=== PATIENT | male | born 1950 | race Caucasian/White ===

== ENCOUNTER 2019-07-31 07:55 | Inpatient (IN) ==
[2019-07-31 08:17] LABS: URINE SOURCE CLEAN CATCH
[2019-07-31] MEDS ORDERED: ZOFRAN IV ONE (08:25)
[2019-07-31] MEDS ORDERED: NS 1,000 ML IV ONE ×2 (08:25→11:34)
[2019-07-31 08:26] LABS: BILIRUBIN URINE SMALL (NEGATIVE); BLOOD URINE NEGATIVE (NEGATIVE); CLARITY CLEAR (CLEAR); COLOR YELLOW; GLUCOSE URINE NEGATIVE (NEGATIVE); KETONE URINE 15 mg/dL (NEGATIVE); LEUKOCYTES URINE NEGATIVE (NEGATIVE); NITRITE URINE NEGATIVE (NEGATIVE); PROTEIN URINE 100 mg/dL (NEGATIVE); SP GRAVITY URINE >= 1.030; UROBILINOGEN URINE 0.2 EU/dL (0.2-1.0)
[2019-07-31 08:27] LABS: URINE BACTERIA 1+ /HFP; URINE EPITHELIAL CELLS <10 /HPF (<10); URINE RBC <10 /HPF (<10)
[2019-07-31 08:28] LABS: URINE WBC <10 /HPF (<10)
--- NOTE | 2019-07-31 08:30 | PROVIDER DOCUMENTATION ---
HPI-Abdominal Pain/GI Problem - General Chief Complaint: N/V/D Stated Complaint: ABD PAIN,VOMITING,DIARRHEA Time Seen by Provider: 07/31/19 08:18 Source: patient, family, old records Allergies/Adverse Reactions: Patient Allergies Allergy/AdvReac Type Severity Reaction Status Date / Time meloxicam [From Mobic] Allergy ANAPHYLAXIS Verified 07/31/19 08:20 Home Medications: Home Medication List Medication Instructions Recorded Confirmed Last Taken Type Diazepam 5 mg PO DAILY 06/22/19 07/31/19 07/30/19 History Hydrochlorothiazide 25 mg PO DAILY 06/22/19 07/31/19 07/30/19 History Losartan Potassium 100 mg PO DAILY 06/22/19 07/31/19 07/30/19 History Omeprazole 40 mg PO DAILY 06/22/19 07/31/19 07/30/19 History Apixaban [Eliquis] 5 mg PO BID 07/31/19 07/31/19 07/30/19 History - History of Present Illness-ABD Nature of Presenting Problems: pt w/ hx of CAD/CABG on Eliquis for 3 mos per Card at [facility] for "superficial" VT of leg (DVT ruled out per pt/family), presents w/ cc: recurrent emesis/diarrhea (both non-bloody) since Friday. no signif abd pain. no clear fever, ? chills. no hx bowel disease. Review of Systems - Adult - REVIEW OF SYSTEMS - ADULT Constitutional: reports: no symptoms reported Eyes: reports: no symptoms reported Ears, Nose, Mouth & Throat: reports: no symptoms reported Cardiovascular: reports: no symptoms reported Respiratory: reports: no symptoms reported Gastrointestinal: reports: see HPI, diarrhea, vomiting. denies: hematemesis, rectal bleeding Genitourinary: reports: no symptoms reported Musculoskeletal: reports: no symptoms reported Integumentary: reports: no symptoms reported Neurological: reports: no symptoms reported Psychiatric: reports: no symptoms reported Endocrine: reports: no symptoms reported Hematologic/Lymphatic: reports: no symptoms reported Allergic/Immunologic: reports: no symptoms reported All Other Systems: Reviewed and Negative Past History - Adult - PAST MEDICAL HISTORY-ADULT Review of Records: reports: Old Records Reviewed Major Childhood Illnesses: reports: denies history Cardiovascular: reports: HTN, hyperlipidemia Respiratory: reports: denies history Gastrointestinal: reports: denies history Obstetrical/Gynecological: reports: denies history Genitourinary: reports: denies history Musculoskeletal: reports: denies history Neurological: reports: denies history Endocrine/Immune: reports: denies history Other Conditions: reports: denies history - PRIOR SURGERIES/PROCEDURES Surgical/Procedure History: reports: orthopedic (extremity) - IMMUNIZATION STATUS Childhood Immunizations: See Nurse Assessment Flu Vaccine: See Nurse Assessment - FAMILY HISTORY Family History: reviewed, not pertinent Physical Exam-General - PHYSICAL EXAM-ADULT Initial Vital Signs Reviewed: Yes - CONSTITUTIONAL General Appearance: appears well, alert, no apparent distress - EYES Eyes: PERRL/EOMI, pink conjunctivae - HEAD, EARS, NOSE, MOUTH & THROAT HENMT: normocephalic/atraumatic. negative: moist mucous membranes - NECK Neck: full range of motion, supple, normal inspection - RESPIRATORY Respiratory: normal breath sounds - CARDIOVASCULAR Cardiovascular: normal peripheral pulses, regular rate, rhythm - GASTROINTESTINAL (ABDOMEN) Abdominal Exam: normal bowel sounds, non tender, soft, no pulsatile mass. negat kevin: guarding, rigid, rebound, tenderness - LYMPHATIC Lymphatic: no adenopathy - MUSCULOSKELETAL Back Exam: normal inspection, no CVA tenderness Extremity: normal range of motion Peripheral Pulses: radial (R): 2+, radial (L): 2+ - SKIN Integumentary: normal color, normal turgor, warm/dry. negative: cyanosis, jaundice, rash - NEUROLOGIC Neurologic: certified lactation educator II-XII nml as tested ((hard of hearing)), grossly normal, no motor/sensory deficits - PSYCHIATRIC Psych/Mental Status: normal mood/affect, normal thought content Progress - PLAN OF CARE/RESULTS Progress/Plan/Lab Results: Vital Signs - 8 hr 07/31/19 07:59 Temperature 97.5 F L Pulse Rate 100 H Respiratory Rate 20 Blood Pressure 126/73 O2 Sat by Pulse Oximetry 97 Laboratory Results - last 24 hr 07/31/19 08:03 Urine Source CLEAN CATCH Orders Category Date Time Status Saline Loc DIRECTED Care 07/31/19 08:24 Ordered NPO Diet 07/31/19 08:24 Ordered AMYLASE [CHEM] Stat Lab 07/31/19 08:24 Uncollected CBC WITH ELECTRONIC DIFF [HEME] Stat Lab 07/31/19 08:24 Uncollected COMPREHENSIVE METABOLIC PANEL [CHEM] Stat Lab 07/31/19 08:24 Uncollected Flu Swab [INFLUENZA SCREEN A/B] Stat Lab 07/31/19 08:09 Ordered LIPASE [CHEM] Stat Lab 07/31/19 08:24 Uncollected STOOL CULTURE [RM] Stat Lab 07/31/19 08:25 Uncollected URINALYSIS W/POSS RFLX CULT [URINALYSIS] Stat Lab 07/31/19 08:24 Uncollected 0.9% Sodium Chloride Inj [Ns] 1,000 ml Med 07/31/19 08:25 Ordered IV 500 mls/hr Ondansetron [Zofran] Med 07/31/19 08:25 Once 4 mg IV NOW ONE Result Diagrams: 07/31/19 09:45 07/31/19 09:45 - REASSESSMENT Reassessment #2 Time Reassessed: 12:30 Status: improving (patient reports improvement w/ Rx, however wbc elev as is lactate. he continues to have diarrhea in ED, however abd becoming ? more distended: will scan) Reassessment #3 Time Reassessed: 13:30 Status: unchanged (diarrhea continues; however scan raises possibility of SBO; pt empirically was given Levaquin for sepsis coverage earlier. will order NG, consult for admission.) - CONSULTS/PCP/HOSPITALIST Notification #1 *Consult/PCP/Hospitalist*: Mayra Time Discussed: 13:40 Consult Disposition: Will see in ED Departure - Departure Date of Disposition Decision: 07/31/19 Time of Disposition Decision: 13:45 DIAGNOSIS: Ileus, Partial small bowel obstruction, Acute renal failure due to tubular necrosis Disposition: ADMITTED INPATIENT 09 Certified Medical Emergency: Emergent Condition: Serious - Critical Care Note This patient required my direct & personal management of CC.: Yes Total Time (mins): 40 Critical Care Statement: This patient required my direct personal management to treat or rule out processes, the absence of which, could potentiallly result in sudden, clinically significant life or limb threatening deterioration. Attestation - Physician/ DC Attestation The physician spent face to face time with patient:: Yes Advanced Practice Provider documentation review:: Supervising physician onsite and consulted in the evaluation and care of this patient. The physician did have a face to face encounter with the patient.
[2019-07-31 10:18] LABS: BASO# 0.02 X1000 (0.0-0.2); BASO% 0.1 % (0.0-0.8); EOS# 0.03 X1000 (0.0-0.7); EOS% 0.2 % (0.0-10.0); HEMATOCRIT 49.7 % (42.0-52.0); HEMOGLOBIN 16.7 g/dL (14.0-18.0); IMM GRAN# 0.04 X1000 (0.0-0.04); IMM GRAN% 0.3 % (0.0-0.5); LYMPH# 1.26 X1000 (1.2-3.4); LYMPH% 8.8 % (20.5-51.1); MCH 28.6 PG (27-31); MCHC 33.6 g/dL (33-37); MCV 85.1 FL (81-99); MONO# 1.37 X1000 (0.11-0.59); MONO% 9.6 % (1.7-9.3); MPV 12.3 FL (7.4-10.4); PLT 318 X1000 (130-400); RBC 5.84 XMIL (4.7-6.1); RDW 15.2 % (11.5-14.5); WBC 14.32 X1000 (4.8-10.8)
[2019-07-31 10:49] LABS: ALB/GLOB RATIO 1.3; ALBUMIN 4.7 g/dL (3.5-5.0); CALCIUM 10.1 mg/dL (8.8-10.2); CREATININE 2.8 mg/dL (0.7-1.2); POTASSIUM 3.8 mmol/L (3.5-5.1); TOTAL BILIRUBIN 0.56 mg/dL (0.20-1.00); TOTAL PROTEIN 8.2 g/dL (6.3-8.3)
[2019-07-31] MEDS ORDERED: LEVAQUIN 500 MG/D5W 500 MG/100 ML IVPB IV ONE (11:35)
[2019-07-31 12:08] LABS: INR 1.17; PROTIME 15.1 Seconds (11.0-16.0)
[2019-07-31 12:09] LABS: PTT 30.9 Seconds (22.3-41.8)
--- NOTE | 2019-07-31 12:26 | Diag Imaging Result Doc PS360 ---
EXAM: CT ABDOMEN/PELVIS W/O CONTRAST INDICATION: abd pain, sepsis+, leukocytosis, renal failure TECHNIQUE: This exam was performed using automated exposure control, adjustment of mA or kV according to patient size, and/or use of iterative reconstruction technique. COMPARISON: 05/17/2015 FINDINGS: There has been a prior cholecystectomy. The liver, spleen, and pancreas are grossly unremarkable. There is an approximately stable 1.6 cm right adrenal nodule most compatible with an adenoma. There is a stable nonobstructing right renal stone. There is no hydronephrosis. The urinary bladder is completely nondistended. The prostate is enlarged. This is stable. The appendix is normal. There is mild sigmoid colonic diverticulosis with no evidence of diverticulitis. There are multiple distended loops of small bowel with several air-fluid levels. Small bowel obstruction cannot be excluded. The distal small bowel is decompressed. If so, there is a possible transition point in the left lower quadrant that can be seen on image 141 of series 3. The remainder of the GI tract is grossly unremarkable. There is no evidence of acute osseous abnormality. There is a 4.1 cm aneurysm at the distal aorta just proximal to the aortoiliac bifurcation. It measured 3.3 cm previously at the same level. There is a small ventral abdominal wall hernia containing only mesenteric fat. There is evidence of prior hernia repair. IMPRESSION: 1.Multiple loops of small bowel with at least moderate distention. This is suspicious for small bowel obstruction. 2.Distal abdominal aortic aneurysm as described. 3.Other incidental/nonacute findings detailed above. Electronically signed by Rupesh Ty 07/31/2019 12:23 PM
--- NOTE | 2019-07-31 12:34 | Diag Imaging Result Doc PS360 ---
EXAM: CHEST-1 VIEW INDICATION: sepsis protocol TECHNIQUE: One view COMPARISON: 01/14/2019 FINDINGS: Inspiration is suboptimal. The lungs are grossly clear. There is no discrete pleural fluid collection or pneumothorax. There is evidence of an interval CABG. The cardiomediastinal silhouette and central vasculature are grossly unremarkable, otherwise. IMPRESSION: No evidence of acute pathology by plain radiograph. Electronically signed by Rupesh Ty 07/31/2019 12:31 PM
--- NOTE | 2019-07-31 14:51 | Diag Imaging Result Doc PS360 ---
EXAM: CHEST/ABD TUBE PLACEMENT INDICATION: NG tube placement TECHNIQUE: One view COMPARISON: 07/31/2019 FINDINGS: The newly placed NG tube tip projects over the distal esophagus above the diaphragm. The lungs are overexposed due to focus on the NG tube but the chest appears to be stable. IMPRESSION: Newly placed NG tube likely in the distal esophagus as described. Electronically signed by Rupesh Ty 07/31/2019 2:49 PM
--- NOTE | 2019-07-31 15:40 | Diag Imaging Result Doc PS360 ---
EXAM: CHEST/ABD TUBE PLACEMENT INDICATION: Small bowel obstruction TECHNIQUE: One view COMPARISON: 07/31/2019 FINDINGS: There has been interval advancement of the NG tube. The tip now projects below the diaphragm and is assumed to be in the lumen of the stomach in the expected position. Limited views of the lung bases are grossly stable. IMPRESSION: Interval advancement of the NG tube, which now appears to be in the lumen of the stomach. Electronically signed by Rupesh Ty 07/31/2019 3:38 PM
[2019-07-31] MEDS ORDERED: LOPRESSOR IV ONE (19:07)
[2019-07-31] MEDS ORDERED: LANOXIN IV ONE (19:08)
--- NOTE | 2019-07-31 20:10 | HISTORY AND PHYSICAL ---
PRIMARY CARE PHYSICIAN: Dr. Del Rodarte. CHIEF COMPLAINT: Of nausea, vomiting, diarrhea and abdominal pain on the left side since Friday and progressively worsened. HISTORY OF PRESENTING ILLNESS: This is a 69-year-old male who presents to [facility] with complaints of left-sided abdominal pain and nausea, vomiting and diarrhea that began Friday. States his last good bowel movement was on Friday. Workup showed a white blood cell count of 14.32, a BUN of 63 with a creatinine of 2.8. On 06/22/2019 he had a creatinine of 1.3 which appears to be around his baseline, plasma lactate of 2.3. We did a CT of the abdomen and pelvis that is suspicious for a small bowel obstruction with multiple loops of small bowel with at least moderate distention so he will be admitted for further evaluation and treatment. PAST MEDICAL HISTORY: Coronary artery disease, hypertension, GERD, sleep apnea and BPH. PAST SURGICAL HISTORY: Of a cholecystectomy, umbilical hernia repair, bilateral shoulder and a CABG. FAMILY HISTORY: Reviewed and noncontributory. SOCIAL HISTORY: Currently lives with family, is a former smoker and but quit 10 years ago and denied any alcohol or illicit drug use. ALLERGIES: Meloxicam. HOME MEDICATIONS: Will be held at this time due to his NPO status but he takes Eliquis 5 mg p.o. b.i.d., diazepam 5 mg p.o. daily, hydrochlorothiazide 25 mg p.o. daily, potassium 100 mg p.o. daily and omeprazole 40 mg p.o. daily. LABORATORY DATA: Showed a white blood cell count of 14.32, hemoglobin 16.7, hematocrit 49.7, platelets 318,000. PT and INR of 15.1 and 1.17. Sodium 136, potassium 3.8, chloride 97, CO2 18, BUN of 63, creatinine 2.8, glucose 175. Cardiac enzyme was negative. Amylase 25, lipase 13, plasma lactate 2.3. Urinalysis was negative. Abdomen and pelvic CT showed multiple loops of small bowel with at least moderate distention, this is suspicious for small bowel obstruction, distal abdominal aortic aneurysm and chest x-ray showed no evidence of acute pathology by plain radiograph. REVIEW OF SYSTEMS: He denied any fever, chills, blurred vision, dizziness, chest pain, coughing, shortness of breath. He has had left-sided abdominal pain, nausea, vomiting, diarrhea, denied any burning or hurting with urination. PHYSICAL EXAMINATION: On arrival he had a temperature of 97.5 degrees, pulse 100, respirations 20, blood pressure 126/73, saturating 97% on room air. GENERAL: This is a 69-year-old male who is sitting on the side of the bed and answers questions appropriately. HEENT: Normocephalic, atraumatic. Normal ENT inspection. Oropharynx and nares are clear. Pupils are equal, round, reactive to light, accommodation. Extraocular movements are intact. NECK: Normal inspection, normal range of motion. HEART: Regular rate and rhythm. No murmurs, rubs, or gallops. LUNGS: Clear to auscultation bilaterally with equal lung expansion and chest wall movement. ABDOMEN: Firm, distended, tender to touch to left upper and lower quadrant. Bowel sounds are hypoactive. MUSCULOSKELETAL: He has 5/5 strength x4 extremities. NEUROLOGICAL: The cranial nerves 2-12 are grossly intact. ASSESSMENT: 1. Small bowel obstruction. 2. Leukocytosis most likely reactive. 3. Acute kidney injury. 4. Hypertension history of. OUR PLAN: He will be admitted to the medical unit, placed on telemetry, NPO, place an NG tube to low intermittent suction. Consult surgery, place on normal saline at 125 mL an hour. SCDs for DVT prophylaxis. Hold home medications at this time due to his NPO status. Recheck a CBC, BMP in the a.m. Further orders after seen by attending and by hospice care consultant. Dictated by ARIEL Martinez for Roger Mckenzie MD cc: MD Roger Chamberlain MD
--- NOTE | 2019-07-31 21:19 | HISTORY AND PHYSICAL ---
ADDENDUM: Patient seen and examined by me [id number]. All the laboratory, vital signs and images were reviewed. The patient presented to emergency department with chief complaint of abdominal pain. We did an abdomen and pelvis CT scan that showed multiple loops of small bowel with at least moderate distention. This is suspicious for small-bowel obstruction. He will get an NG tube placed on suction. He also has a distal abdominal aortic aneurysm. He was discharged last month due to chest pain with a history of coronary artery disease, hypertension, BPH and sleep apnea. He was transferred at that time to [facility] to get a cardiac catheterization. I do not have too much information about that. This time he seems to be having a small-bowel obstruction. Surgery Department has been consulted. He has a history of abdominal surgery including a hernia repair in 2018. His abdomen is distended. He does have positive bowel sounds but he is not passing gas or having bowel movement and his pain has been going on since last Friday, 5 days ago. I agree with the rest of the nurse practitioner's assessment and plan. cc: Roger Mckenzie MD MTDD
[2019-07-31] MEDS: NS 1,000 ML IV SCH (22:26)
[2019-08-01] MEDS: NS 1,000 ML IV SCH (04:02)
[2019-08-01 05:38] LABS: BASO# 0.03 X1000 (0.0-0.2); BASO% 0.3 % (0.0-0.8); EOS# 0.17 X1000 (0.0-0.7); EOS% 1.8 % (0.0-10.0); HEMOGLOBIN 14.4 g/dL (14.0-18.0); IMM GRAN# 0.03 X1000 (0.0-0.04); IMM GRAN% 0.3 % (0.0-0.5); LYMPH# 1.66 X1000 (1.2-3.4); LYMPH% 17.8 % (20.5-51.1); MCH 29.2 PG (27-31); MCHC 33.5 g/dL (33-37); MCV 87.2 FL (81-99); MONO# 1.56 X1000 (0.11-0.59); MONO% 16.8 % (1.7-9.3); MPV 11.9 FL (7.4-10.4); NEUT# 5.86 X1000 (1.4-6.5); PLT 228 X1000 (130-400); RBC 4.93 XMIL (4.7-6.1); RDW 15.3 % (11.5-14.5); WBC 9.31 X1000 (4.8-10.8)
[2019-08-01 05:48] LABS: CALCIUM 8.8 mg/dL (8.8-10.2); CREATININE 2.1 mg/dL (0.7-1.2); POTASSIUM 3.2 mmol/L (3.5-5.1)
--- NOTE | 2019-08-01 08:18 | Diag Imaging Result Doc PS360 ---
EXAM: CHEST/ABD TUBE PLACEMENT INDICATION: tube placement TECHNIQUE: One view COMPARISON: 07/31/2019 FINDINGS: The NG tube projects well below the diaphragm and is assumed to be in the lumen of the stomach in expected position. Otherwise, the chest is grossly stable. IMPRESSION: NG tube in expected position as described. Electronically signed by Rupesh Ty 08/01/2019 8:16 AM
[2019-08-01] MEDS: ZOFRAN IV PRN ×3 (10:33→21:24)
[2019-08-01] MEDS ORDERED: POTASSIUM CHLORIDE 20 MEQ in NS 1,000 ML IV SCH (11:00)
[2019-08-01] MEDS ORDERED: SODIUM CHLORIDE 0.9% INJ SCH (11:45)
[2019-08-01] MEDS: PROTONIX IV SCH (12:07)
--- NOTE | 2019-08-01 13:09 | PROGRESS NOTE ---
DATE: 08/01/2019 SUBJECTIVE: This patient is sitting at the bedside. He is not complaining of pain. He is getting intermittent suction through his NG tube. A few minutes ago, he passed some gas and he had a liquid bowel movement. His potassium level is low so I will go ahead and put some potassium in his IV fluids. Apparently, he had an episode of atrial fibrillation with RVR during the night. He is on blood thinners at home but I do not see any medication to control his rate. I will ask cardiology department to evaluate this patient. He had a CABG a month ago due to apparently two vessel disease. I will start this patient on anticoagulation with a heparin drip. OBJECTIVE: Vital Signs: Temperature 98.3 degrees, pulse 69, respiratory rate 18, blood pressure 147/60, oxygen saturation 99 on room air. HEENT: Head normocephalic. No trauma. PERRLA. Neck: Supple. No JVD. No masses. Central trachea. Chest: Clear to auscultation. No wheezing. No rales. He has multiple scars on his chest due to previous surgery with no signs of infection. Abdomen: Soft. It is distended. Positive bowel sounds. Extremities: Trace edema. No clubbing, no cyanosis. Neurological Examination: The patient is alert and oriented x3. He is following commands. No focal deficits. Laboratory: WBC 9.1, hemoglobin 14.1, hematocrit 43, platelets 228,000. Sodium 132, potassium 3.2, chloride 101, bicarbonate 19, BUN 63, creatinine 2.1, glucose 138, calcium 8.8. ASSESSMENT AND PLAN: 1. Small bowel obstruction. As per the patient and the son at the bedside, he just had a liquid bowel movement with some gas. Surgery department has been consulted. Pending recommendations, for now, we will continue with same management. He is on intermittent suction through the nasogastric tube. 2. History of coronary artery disease, status post coronary artery bypass graft apparently due to two vessel disease. He is also on anticoagulation with Eliquis twice a day. What I am going to do is to put this patient on a heparin drip. I am going to stop his anticoagulation. On top of that, he has been having episodes of atrial fibrillation. Yesterday night, he an episode where the heart rate increased to 170s. As per the patient, he has been having these episodes at home on and off. 3. Atrial fibrillation with rapid ventricular response, resolved. I have consulted cardiology to evaluate this patient. He is not on any medication to control his atrial fibrillation. I have placed this patient on a heparin drip. He is on Eliquis at home. 4. Acute on chronic kidney disease due to dehydration. He is on intravenous fluids and potassium. I will monitor. I will probably decrease the rate of the fluids from 125 to 100 because of his low ejection fraction, which I believe is around 35%. 5. Hypertension. We will monitor. Stable. 6. Gastroesophageal reflux disease. Continue with proton pump inhibitors. 7. Sleep apnea. Aware. 8. Benign prostatic hypertrophy. Aware. 9. The patient seems to be a little bit better compared with yesterday. His abdomen is less distended but he is on intermittent suction through a nasogastric tube. It looks like he has been having episodes of atrial fibrillation at home. Yesterday, he had an episode of atrial fibrillation with rapid ventricular response here that resolved after treating him with digoxin and metoprolol. I have consulted cardiology department to evaluate this patient. Surgery on board. Pending recommendations. cc: Roger Mckenzie MD
[2019-08-01] MEDS ORDERED: HEPARIN 25,000 UNITS/D5W 25,000 UNIT/250 ML IV.SOLN IV SCH (14:30)
[2019-08-01] MEDS ORDERED: LOPRESSOR IV PRN (15:08)
[2019-08-01 15:32] LABS: INR 1.16; PROTIME 14.9 Seconds (11.0-16.0)
[2019-08-01 16:18] LABS: PTT 30.8 Seconds (22.3-41.8)
--- NOTE | 2019-08-01 19:35 | CARDIOLOGY CONSULTATION ---
DATE: 08/01/2019 CHIEF COMPLAINT: nausea, vomiting, diarrhea and belly pain for approximately 1 week that progressively worsened. HISTORY OF PRESENT ILLNESS: Mr. Mae is a 69-year-old white male with a history of coronary bypass grafting who presented for the above-listed complaints. Since admission, he has been diagnosed with what appears to be a possible small bowel obstruction and has been managed conservatively with an NG tube. He reports some improvement in his symptoms although continued bouts of diarrhea. During the course of the hospitalization, it appears he has converted over to atrial fibrillation. The patient is not aware of this as he did not have any symptoms. Presently, he is in sinus rhythm. He has a previous history of postoperative atrial fibrillation and had been on Eliquis for a superficial DVT in his left lower extremity. This was placed by Dr. Johnson. PAST MEDICAL HISTORY: 1. Coronary disease with bypass grafting. His bypass was performed in January 2019 with a GALLAGHER to the LAD, vein graft to the PDA. 2. Bilateral carotid artery disease. 3. Postoperative atrial fibrillation. 4. Hypertension. 5. Hyperlipidemia. 6. Diabetes. 7. Superficial venous thrombosis. 8. Smokeless tobacco use. 9. Chronic kidney disease. 10. Reflux. 11. Sleep apnea. 12. Obesity. SOCIAL HISTORY: He is . His is present in the room. Quit smoking 10 years ago. No alcohol or illicit drug use. FAMILY HISTORY: Significant for hypertension. REVIEW OF SYSTEMS: A 10 system review of systems is negative except for those mentioned in HPI. PHYSICAL EXAMINATION: Vital Signs: He is afebrile, heart rate 64, blood pressure 138/58. General: He is in no acute distress. HEENT: Oropharynx is moist. Poor dentition. Eye examination shows pink conjunctivae. White sclerae. Neck: Shows no obvious thyromegaly or thyroid tenderness. Cardiovascular: He sounds to be in a regular rate and rhythm. He has no murmurs. His telemetry currently shows sinus. He has no lower extremity edema. Chest: Clear bilaterally. He has no increased work of breathing. Abdomen: Soft, diffuse tenderness. Bowel sounds present. NG tube in place. Skin: Warm and dry throughout without any rashes. Neurological: Moving all extremities well. PERTINENT DATA: His abdomen, pelvis CT demonstrates multiple loops of small bowel with moderate distention suggestive of a small bowel obstruction. He has a 4.1 cm aneurysm at the distal aorta just proximal to the bifurcation. I do not have an EKG on this patient but he does have multiple sheets of telemetry that clearly show what appears to be atrial fibrillation. His laboratory data shows a white count of 9.3, his hematocrit is 43, his platelet count is 228,000. His sodium is 137, potassium 3.2, BUN 63, creatinine today is 2.1. ASSESSMENT: Mr. Mae is a 69-year-old gentleman who presented with small bowel obstruction. PLAN: He has had a onset of atrial fibrillation. He will likely need anticoagulation long-term. I agree with transitioning him over to intravenous heparin. I will ensure he has a TSH ordered. We will likely order an echocardiogram in the morning. cc: Sameer Natarajan MD
[2019-08-01] MEDS: POTASSIUM CHLORIDE 20 MEQ in NS 1,000 ML IV SCH (19:58)
[2019-08-01] MEDS: HEPARIN 25,000 UNITS/D5W 25,000 UNIT/250 ML IV.SOLN IV SCH (21:43)
--- NOTE | 2019-08-02 00:18 | GENERAL SURGERY CONSULTATION ---
DATE: 08/01/2019 CHIEF COMPLAINT: Possible small bowel obstruction. I have been asked to see the patient by the hospital due to CT scan that suggested a possible partial small bowel obstruction. A 69-year-old gentleman who began having some abdominal pain, nausea, vomiting, diarrhea 5 days ago. No one else had eaten what he had eaten and got sick. He states that since he has been in the hospital though especially today he is passing gas and had a formed bowel movement. He says his abdomen is feeling better. On admission his CAT scan showed multiple loops of small bowel with some moderate distention. He is also noted to have a 4.1 cm distal abdominal aortic aneurysm. He has abdominal wall hernia and evidence of a prior hernia repair. PAST MEDICAL HISTORY: Pertinent for coronary artery disease, hypertension, gastroesophageal reflux, sleep apnea, benign prostatic hypertrophy. PAST SURGICAL HISTORY: Previous surgery includes a cholecystectomy, umbilical hernia repair, shoulder repair and a coronary artery bypass grafting 5 months ago. FAMILY HISTORY: Noncontributory. SOCIAL HISTORY: He lives with his family. He is . Former smoker. Denies alcohol or drug use. HOME MEDICATIONS: Include Eliquis, diazepam, hydrochlorothiazide, potassium, omeprazole. ALLERGIES: Meloxicam. REVIEW OF SYSTEMS: Negative in every other subsystem the other 10 subsystems. PHYSICAL EXAMINATION: Vital Signs: He is afebrile. Heart rate 64, blood pressure 138/58. He has an NG tube in place. No cervical adenopathy. Bilateral breath sounds. Heart: Regular rate and rhythm. Abdomen: Soft. Bowel sounds are hypoactive but present. He is nontender to palpation. He has trace peripheral edema. He is awake and alert. LABS: White count is down to 9300, hemoglobin 14, potassium 3.2, BUN 63, creatinine 2.1. ASSESSMENT: Possible partial small bowel obstruction. It appears to be responding to hydration and nasogastric suction. I would recommend that we continue the NG suction overnight and then we will check an x-ray in the morning and hopefully get his NG tube out tomorrow. Will allow him to have ice chips and even some popsicles tonight. cc: Wesley James MD MTDD
[2019-08-02] MEDS: POTASSIUM CHLORIDE 20 MEQ in NS 1,000 ML IV SCH ×4 (04:47→18:29)
[2019-08-02 05:35] LABS: BASO# 0.04 X1000 (0.0-0.2); BASO% 0.5 % (0.0-0.8); EOS# 0.11 X1000 (0.0-0.7); EOS% 1.3 % (0.0-10.0); HEMATOCRIT 39.3 % (42.0-52.0); HEMOGLOBIN 13.1 g/dL (14.0-18.0); IMM GRAN# 0.03 X1000 (0.0-0.04); IMM GRAN% 0.3 % (0.0-0.5); LYMPH# 2.15 X1000 (1.2-3.4); LYMPH% 24.7 % (20.5-51.1); MCH 29.3 PG (27-31); MCHC 33.3 g/dL (33-37); MCV 87.9 FL (81-99); MONO# 0.96 X1000 (0.11-0.59); MPV 11.8 FL (7.4-10.4); NEUT% 62.2 % (42.2-75.2); PLT 186 X1000 (130-400); RBC 4.47 XMIL (4.7-6.1); RDW 15.3 % (11.5-14.5); WBC 8.69 X1000 (4.8-10.8)
[2019-08-02 06:26] LABS: ALB/GLOB RATIO 1.1; ALBUMIN 3.5 g/dL (3.5-5.0); CALCIUM 8.9 mg/dL (8.8-10.2); CREATININE 1.6 mg/dL (0.7-1.2); MAGNESIUM 1.7 mg/dL (1.5-2.7); PHOSPHORUS 2.1 mg/dL (2.7-4.5); POTASSIUM 3.6 mmol/L (3.5-5.1); TOTAL BILIRUBIN 0.36 mg/dL (0.20-1.00); TOTAL PROTEIN 6.7 g/dL (6.3-8.3)
[2019-08-02] MEDS: ZOFRAN IV PRN ×2 (06:51→11:47)
[2019-08-02] MEDS: HEPARIN 25,000 UNITS/D5W 25,000 UNIT/250 ML IV.SOLN IV SCH ×2 (06:55→15:21)
[2019-08-02 07:21] LABS: EOS 1 % (1-10); LYMPHS 17 % (21-51); MONO 9 % (1-9); SEGS 73 % (42-75)
--- NOTE | 2019-08-02 07:43 | Diag Imaging Result Doc PS360 ---
EXAM: FLAT/UPRIGHT ABD/1 VIEW CHEST 08/02/2019 HISTORY: sbo TECHNIQUE: Flat and upright abdomen with PA chest COMMENT: There is gas and stool in the colon without evidence of dilatation. The small bowel and stomach are not distended. There is no evidence organomegaly or mass. There is spondylosis in the lumbar spine. There is an NG tube with its tip below the diaphragm and stomach. There is minimal basilar platelike atelectasis particularly in the left lower lobe. IMPRESSION: No evidence of small bowel obstruction. Nonspecific abdomen. Subsegmental atelectasis. Electronically signed by Miquel Euceda 08/02/2019 7:40 AM
[2019-08-02] MEDS: PROTONIX IV SCH (11:47)
[2019-08-02] MEDS ORDERED: DULCOLAX PR ONE (14:35)
--- NOTE | 2019-08-02 15:01 | PROGRESS NOTE ---
DATE: 08/02/2019 SUBJECTIVE: Today, Mr. Mae refers to be doing a lot better. No abdominal pain. He was just very agitated, wanted to eat something. OBJECTIVE: Vital Signs: Blood pressure is 153/60, pulse of 57, respirations 19, temperature 97.3 degrees. General: Mr. Mae is a 69-year-old gentleman. He is in bed. No distress. HEENT: Mucosa is pink and moist. Anicteric. Acyanotic. Neck: Supple. Chest: Good air entry bilaterally. There were no crepitations, no rhonchi. Cardiovascular: Regular rate and rhythm. I did not hear any murmurs. GI: Abdomen is soft. It is distended. There are some laparoscopic scars on the anterior abdominal wall. Bowel sounds were present. Extremities: No pedal edema. 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 IMAGING AND LABORATORY DATA: CBC shows mild normocytic anemia. Chemistry shows creatinine was 1.6, it is trending down, the patient has a baseline of 1.3. A KUB this morning showed no evidence of small-bowel obstruction. There was some nonspecific abdomen. ASSESSMENT: 1. Partial small-bowel obstruction. The patient is currently on nasogastric tube for gastrointestinal decompression. A KUB this morning shows no obstruction, so we are going to clamp it and give him some sips of water, and get a KUB later on today and see if he continues to be no obstruction pattern, then we will take it out. 2. History of coronary artery disease. The patient is status post coronary artery bypass graft. 3. New onset of atrial fibrillation with rapid ventricular response, currently rate controlled in sinus. The patient is on heparin drip. 4. Acute on chronic kidney disease. 5. Hypertension. 6. History of benign prostatic hypertrophy. For now, we are going to continue with the intravenous fluids. Sips of water will be okay. We are going to aspirate the gastric contents in 4 hours. If the residual is minimum, we will be able to put him on some clears, and get the nasogastric tube out later on today. The patient is also being seen by Surgery and Cardiology. cc: Anmol Laura MD
--- NOTE | 2019-08-02 15:03 | CARDIOLOGY PROGRESS NOTE ---
DATE: 08/02/2019 SUBJECTIVE: Mr. Mae reports he is doing well today. His belly feels much better. He is tolerating clears, although he currently has suction still in place. PHYSICAL EXAM: Vital Signs: He is afebrile, heart rate 58, blood pressure 147/57. General: He is no acute distress. Cardiovascular: He sounds to be in a regular rate and rhythm consistent with sinus. On his current monitor, he has no murmurs. He has no lower extremity edema. Chest: His chest exam is clear bilaterally. He has no increased work of breathing. Abdomen: His abdomen is soft, nontender. PERTINENT DATA: TSH is normal. His sodium is 141, potassium 3.6. BUN 46, creatinine is 1.6 which has continued to improve. His white count is 8.7, hematocrit 39. ASSESSMENT: Mr. Mae is a 69-year-old gentleman, who came in with small bowel obstruction. He had an episode of atrial fibrillation, now back in sinus. PLAN: At this point, I do not have any further recommendations. He is on a heparin infusion. He can likely be transitioned back over to his home dose of Eliquis at the time of discharge. He otherwise seems to be doing quite well. Please contact us if we can be of further assistance. His echocardiogram showed a preserved ejection fraction. cc: Sameer Natarajan MD
--- NOTE | 2019-08-02 15:28 | Diag Imaging Result Doc PS360 ---
KUB ABDOMEN - 08/02/2019 INDICATION: SBO COMPARISON: 08/02/2019 FINDINGS: There is a nonobstructive bowel gas pattern. No free air or abdominal calcifications. There are cholecystectomy clips. IMPRESSION: No acute disease. Electronically signed by Anastacio Jones 08/02/2019 3:26 PM
--- NOTE | 2019-08-02 17:50 | ECHO REPORT ---
ORDER DATE: 08/02/2019 INTERPRETING PHYSICIAN: Dr. Lewis Nguyễn ECHOCARDIOGRAPHIC MEASUREMENTS: 1. Interventricular septum: 0.8 cm. 2. Left ventricular posterior wall: 0.8 cm. 3. Diastolic diameter: 5.8 cm. 4. Left atrium: 4.3 cm. 5. Aorta: 3.7 cm. SUMMARY OF THE 2-DIMENSIONAL IMAGIN. Aortic valve leaflets were trileaflet. 2. Mitral valve was normal. 3. Aortic valve leaflets were mildly sclerosed. 4. Tricuspid valve was normal. 5. There is left atrial enlargement. 6. There is mild pulmonary regurgitation. 7. Normal left ventricular cavity size. 8. Estimated ejection fraction of 65%. 9. There is grade 2 diastolic dysfunction. 10. Peak velocity across the aortic valve less than 2 meters per second. 11. There is no aortic stenosis or regurgitation. 12. Mild tricuspid regurgitation. 13. Peak velocity across the tricuspid valve was 2.8 meters per second. 14. Pulmonary artery systolic pressure of 41 mmHg. 15. There is mild mitral regurgitation. 16. There is no pericardial effusion or obvious intracardiac mass or thrombus seen. cc: MD Sameer Eldridge MD
[2019-08-02] MEDS: MIRALAX PO SCH (18:33)
--- NOTE | 2019-08-02 21:03 | GENERAL SURGERY PROGRESS NOTE ---
DATE: 08/02/2019 Mr. Mae is afebrile, heart rate 57, blood pressure 153/60. He has passed flatus. His x-ray is nonspecific and shows lots of air in his colon. The plan will be to remove his NG tube and start him on clear liquids. cc: Wesley James MD
[2019-08-02] MEDS ORDERED: HEPARIN 25,000 UNITS/D5W 25,000 UNIT/250 ML IV.SOLN IV SCH (22:16)
[2019-08-03] MEDS: POTASSIUM CHLORIDE 20 MEQ in NS 1,000 ML IV SCH ×2 (00:37→10:32)
[2019-08-03] MEDS ORDERED: HEPARIN 25,000 UNITS/D5W 25,000 UNIT/250 ML IV.SOLN IV SCH ×2 (00:52→06:46)
[2019-08-03 05:23] LABS: BASO# 0.04 X1000 (0.0-0.2); BASO% 0.5 % (0.0-0.8); EOS# 0.11 X1000 (0.0-0.7); EOS% 1.5 % (0.0-10.0); HEMATOCRIT 37.7 % (42.0-52.0); HEMOGLOBIN 12.4 g/dL (14.0-18.0); IMM GRAN# 0.04 X1000 (0.0-0.04); IMM GRAN% 0.5 % (0.0-0.5); LYMPH# 2.01 X1000 (1.2-3.4); LYMPH% 27.5 % (20.5-51.1); MCH 29.1 PG (27-31); MCHC 32.9 g/dL (33-37); MCV 88.5 FL (81-99); MONO# 0.69 X1000 (0.11-0.59); MONO% 9.4 % (1.7-9.3); MPV 11.6 FL (7.4-10.4); NEUT# 4.43 X1000 (1.4-6.5); NEUT% 60.6 % (42.2-75.2); PLT 163 X1000 (130-400); RBC 4.26 XMIL (4.7-6.1); WBC 7.32 X1000 (4.8-10.8)
[2019-08-03 05:48] LABS: ALBUMIN 3.2 g/dL (3.5-5.0); CALCIUM 8.8 mg/dL (8.8-10.2); CREATININE 1.2 mg/dL (0.7-1.2); MAGNESIUM 1.6 mg/dL (1.5-2.7); POTASSIUM 3.5 mmol/L (3.5-5.1)
[2019-08-03] MEDS ORDERED: NON-FORMULARY MED (Omeprazole 40 MG) PO SCH (09:00)
[2019-08-03] MEDS ORDERED: COZAAR PO SCH (09:00)
[2019-08-03] MEDS ORDERED: HYDROCHLOROTHIAZIDE PO SCH (09:00)
[2019-08-03] MEDS: ELIQUIS PO SCH ×2 (09:28→09:46)
[2019-08-03] MEDS: MIRALAX PO SCH (09:29)
[2019-08-03 11:47] VITALS: BP 137/94
[2019-08-03] MEDS ORDERED: POTASSIUM CHLORIDE 20% LIQUID PO ONE (12:14)
[2019-08-03] MEDS ORDERED: MAGNESIUM SULFATE 2 GM/S.W.I. 2 GM/50 ML IVPB IV ONE (12:14)
[2019-08-03] MEDS ORDERED: MULTAQ PO SCH (12:15)
[2019-08-03] MEDS: PROTONIX IV SCH (13:19)
--- NOTE | 2019-08-03 19:57 | CARDIOLOGY PROGRESS NOTE ---
DATE: 08/03/2019 SUBJECTIVE: Mr. Mae has had some periodic heart racing today. He is tolerating his oral intake. PHYSICAL EXAMINATION: Vital Signs: He is afebrile. Heart rate during my examination was in the 120s or so, per telemetry. He was in atrial fibrillation. His blood pressure is 137/94. General: He is in no acute distress. Cardiovascular: He is in an irregularly irregular rhythm. He has no obvious murmurs. He has no S3. He has no lower extremity edema. Chest: Sounds clear bilaterally. He has no increased work of breathing. Abdomen: Soft, nontender. PERTINENT DATA: His white count is 7.3, hematocrit 37, platelet count 163,000. Sodium 143, potassium 3.5, BUN 30, creatinine is 1.2. ASSESSMENT: Mr. Mae is a 69-year-old gentleman with atrial fibrillation. PLAN: We will start him on Multaq 400 b.i.d. If he remains in atrial fibrillation, we will plan on transesophageal echocardiogram cardioversion in the morning. I will replete his potassium as well as his magnesium. cc: Sameer Natarajan MD
--- NOTE | 2019-08-04 16:31 | DISCHARGE SUMMARY ---
ADMISSION DATE: 07/31/2019 DISCHARGE DATE: 08/03/2019 DISPOSITION: Home. The patient actually signed AMA. CONSULTATION DURING THIS ADMISSION: Surgery was consulted. Patient was seen by Dr. James. Cardiology was also consulted. Patient was seen by Dr. Sameer Natarajan. INVASIVE PROCEDURES DONE DURING THIS ADMISSION: None. IMAGING STUDIES OF SIGNIFICANCE: A CT scan of the abdomen without contrast did show multiple loops of small bowel, at least moderate distention, suspicious for small bowel obstruction. A distal abdominal aneurysm. Multiple KUBs were done including this morning which shows no acute disease. Echocardiogram showed an ejection fraction of 65%. No major valvular abnormality. ADMISSION DIAGNOSES: 1. Small bowel obstruction. 2. Leukocytosis. 3. Acute kidney injury. 4. Hypertension. DIAGNOSES AT THE TIME OF DISCHARGE: 1. Partial small bowel obstruction, resolved with conservative management. 2. History of coronary artery disease, status post coronary artery bypass graft. 3. New onset of atrial fibrillation with rapid ventricular response. 4. Acute on chronic kidney disease. 5. Hypertension. 6. History of benign prostatic hypertrophy. PRESENTING COMPLAINT: Nausea, vomiting, abdominal pain. HISTORY OF PRESENT COMPLAINT: Mr. Mae is a 69-year-old male with a history of coronary artery disease, GERD, status post CABG, came to the emergency department because of nausea and vomiting. He was evaluated. Imaging studies did reveal at least partial small bowel obstruction. He was admitted to the medical floor for management. HOSPITAL COURSE: Mr. Mae was admitted to the medical floor, was fluid resuscitated, kept NPO, and NG tube was put in for gastric decompression. Surgery was consulted. Patient was seen by Dr. James who recommended conservative management. Mr. Mae did improve from the GI standpoint. However, during the hospital course, he also went into atrial fibrillation RVR. He was started on metoprolol and heparin drip and Cardiology was consulted. The patient was seen by Dr. Sameer Natarajan. He was going in and out of atrial fibrillation and sinus. So, Cardiology today decided to possibly do a NATALIE with cardioversion tomorrow. However, Mr. Mae was very adamant that he wanted to leave. When I saw him early on this morning, from the GI standpoint I think he could go home, but I also thought that it would be reasonable for him to stay and get a cardiac workup completely over before he gets discharged. Unfortunately, later on he was very agitated, he signed out against medical advice, and left the hospital not withstanding the recommendations from Cardiology. cc: Anmol Laura MD
== END 2019-08-03 15:40 | disposition left against medical advice (07) | DRG 389 ==
LOC: ED 07:55 → EDIPHOLD 14:23 → SUATTDRO 14:23 → 1N 15:47
PROVIDERS: ATTEND Internal Medicine